=== PATIENT | male | born 1950 | race Caucasian/White ===

== ENCOUNTER 2018-04-30 13:22 | Inpatient (IN) ==
[2018-04-30] MEDS ORDERED: SODIUM CHLORIDE 0.9% 1,000 ML IV STA (13:49)
[2018-04-30] MEDS ORDERED: SODIUM CHLORIDE 0.9% 2,200 ML IV ONE (13:50)
[2018-04-30 13:58] LABS: Basophils % 0.3 % (0.0-0.8); Eosinophils % 0.1 % (0.00-10.9); Hematocrit 25.1 VOL% (42.0-52.0); Hemoglobin 7.9 GM/DL (14.0-18.0); Immature Granulocytes % 0.4 %; Immature Granulocytes Absolute 0.05 #; Lymphocytes # 1.6 10*3/uL (1.4-4.0); Lymphocytes % 13.9 % (21.2-54.2); Mean Corpuscular HGB Conc 31.5 GM/DL (32-36); Mean Corpuscular Hemoglobin 29 PG (27-34); Mean Corpuscular Volume 90.9 FL (87-102); Monocytes # 1.2 10*3/uL (0.11-0.8); Neutrophils # 8.3 10*3/uL (1.4-7.4); Neutrophils % 74.3 % (38.7-73.9); Platelet Count 395 T/CUMM (130-400); Red Blood Count 2.76 MC/CUMM (3.8-5.5); White Blood Count 11.1 T/CUMM (4-12)
[2018-04-30 14:09] LABS: Alanine Aminotransferase 24 U/L (16-61); Albumin 2.1 G/DL (3.4-5.0); Alkaline Phosphatase 95 U/L (45-117); Aspartate Amino Transferase 21 U/L (0-37); Blood Urea Nitrogen 31 MG/DL (7-18); Glucose 66 MG/DL (74-106); Osmolality,Calculated 296.4 MOS/KG (273-304); Potassium 4.6 MMOL/L (3.5-5.1); Sodium 147 MMOL/L (136-145); Total Protein 6.9 G/DL (6.4-8.3)
[2018-04-30 14:09] LABS: INR 1.1; PT Patient Result 11.2 SECS; Partial Thromboplastin Time 31.5 SECS (0-40)
[2018-04-30] MEDS ORDERED: DEXTROSE 50% 25 GM/50 ML VIAL IV STA (14:14)
[2018-04-30] MEDS ORDERED: DEXTROSE 50% 25 GM/50 ML SYRINGE IV ONE (14:16)
[2018-04-30 14:22] LABS: Ammonia < 10 UMOL/L (11-32)
[2018-04-30 15:19] LABS: Apearance,Urine CLOUDY (Clear); Bilirubin,Urine Negative (Negative); Blood, Urine Moderate mg/dL (Negative); Glucose,Urine (UA) Negative (Negative); Hyaline Casts,Urine 2 /LPF (0-3); Ketones,Urine 5 mg/dL (Negative); Nitrite,Urine Negative (Negative); Protein,Urine 30 MG/DL; RBC,Urine 29 /HPF (0-4); Squamous Epithelial Cell,Urine Occasional /HPF (0-10); Urine Color Yellow (Yellow); Urine Specific Gravity 1.014 (1.001-1.035); Urine Urobilinogen < 2.0 EU/DL (0.2-1.0); WBC,Urine 358 /HPF (0-6)
[2018-04-30 15:22] LABS: Barbiturates Screen,Urine Negative (Negative); Benzodiazepines Screen,Urine Negative (Negative); Cannabinoid Screen,Urine Negative (Negative); Opiate Screen,Urine Positive (Negative); Phencyclidine Screen,Urine Negative (Negative)
[2018-04-30] MEDS ORDERED: cefTRIAXone 1,000 MG in SODIUM CHLORIDE 0.9% 100 ML IV STA (15:26)
[2018-04-30] MEDS ORDERED: cefTRIAXone 1,000 MG in SYRINGE 1 EACH IV STA (15:43)
[2018-04-30] MEDS ORDERED: cefTRIAXone 1,000 MG in SYRINGE 1 EACH IV SCH (16:00)
[2018-04-30] MEDS ORDERED: ACETAMINOPHEN 325 MG TABLET PO PRN (16:26)
[2018-04-30] MEDS ORDERED: DEXTROSE 50% 25 GM/50 ML VIAL IV PRN (17:56)
[2018-04-30] MEDS ORDERED: GLUCAGON 1 MG VIAL IM PRN (17:56)
[2018-04-30] MEDS ORDERED: ACETAMINOPHEN 650 MG SUPP RECTAL PRN (19:21)
[2018-04-30] MEDS ORDERED: ALBUTEROL/IPRATROPIUM 3 ML NEB RESP TX PRN (19:55)
[2018-04-30] MEDS: MEROPENEM 1,000 MG in SYRINGE 1 EACH IV SCH (20:38)
[2018-04-30] MEDS: GABAPENTIN 600 MG TABLET PO SCH (21:15)
[2018-04-30] MEDS: FLUoxetine 20 MG CAPSULE PO SCH (21:15)
[2018-05-01] MEDS ORDERED: LORazepam 2 MG/1 ML VIAL IV ONE (05:00)
[2018-05-01 06:56] LABS: Hematocrit 25.4 VOL% (42.0-52.0); Mean Corpuscular HGB Conc 31.5 GM/DL (32-36); Mean Corpuscular Hemoglobin 28 PG (27-34); Mean Corpuscular Volume 89.4 FL (87-102); Mean Platelet Volume 9.2 FL (9.6-12.0); Platelet Count 481 T/CUMM (130-400); Red Blood Count 2.84 MC/CUMM (3.8-5.5); Red Cell Distribution Width 16.1 % (9.3-17.3); White Blood Count 11.5 T/CUMM (4-12)
[2018-05-01 06:57] LABS: Basophils % 0.2 % (0.0-0.8); Immature Granulocytes % 0.5 %; Immature Granulocytes Absolute 0.06 #; Lymphocytes # 1.3 10*3/uL (1.4-4.0); Lymphocytes % 11.4 % (21.2-54.2); Monocytes # 1.2 10*3/uL (0.11-0.8); Monocytes % 10.5 % (1.7-12.7); Neutrophils # 8.9 10*3/uL (1.4-7.4); Neutrophils % 77.4 % (38.7-73.9)
[2018-05-01 07:20] LABS: Calcium 8.8 MG/DL (8.5-10.1); Potassium 4.3 MMOL/L (3.5-5.1)
[2018-05-01 07:33] LABS: Risk Ratio 4.15; Thyroid Stimulating Hormone 0.429 uIU/ml (0.358-3.74); VLDL CHOLESTEROL 23.6 MG/DL
[2018-05-01] MEDS ORDERED: MELOXICAM 7.5 MG TABLET PO SCH (09:00)
[2018-05-01] MEDS ORDERED: PANTOPRAZOLE 40 MG TABLET PO SCH (09:00)
[2018-05-01] MEDS ORDERED: buPROPion 100 MG TABLET PO SCH (09:00)
[2018-05-01] MEDS ORDERED: cefTRIAXone 1,000 MG in SYRINGE 1 EACH IV SCH (09:00)
[2018-05-01] MEDS ORDERED: LISINOPRIL 5 MG TABLET PO SCH (09:00)
[2018-05-01] MEDS: MEROPENEM 1,000 MG in SYRINGE 1 EACH IV SCH (09:55)
[2018-05-01] MEDS: FLUoxetine 20 MG CAPSULE PO SCH (09:56)
[2018-05-01] MEDS: GABAPENTIN 600 MG TABLET PO SCH (09:56)
[2018-05-01] MEDS ORDERED: METOPROLOL SUCCINATE XL 25 MG TABLET PO ONE ×3 (10:17→17:04)
[2018-05-01] MEDS ORDERED: METOPROLOL TARTRATE 5 MG/5 ML VIAL IV ONE (10:27)
[2018-05-01] MEDS ORDERED: hydrALAZINE 20 MG/1 ML VIAL IV PRN (15:11)
[2018-05-01] MEDS ORDERED: DEXTROSE 5% NACL 0.45% 1,000 ML IV SCH (15:30)
[2018-05-01] MEDS ORDERED: THIAMINE 200 MG/2 ML VIAL IV SCH (15:30)
[2018-05-01] MEDS ORDERED: NIFEdipine 10 MG CAPSULE PO SCH (15:30)
[2018-05-01] MEDS ORDERED: FOLIC ACID INJ 1 MG in SYRINGE 1 EACH IV SCH (15:30)
[2018-05-01] MEDS ORDERED: VANCOMYCIN INJ 1,000 MG in SODIUM CHLORIDE 0.9% 250 ML IV SCH (17:00)
[2018-05-01 17:08] VITALS: BP 152/93
[2018-05-01 17:44] LABS: Glucose,CSF 60 MG/DL (40-70)
[2018-05-01 18:12] LABS: Eosinophils,CSF 1 %; Red Blood Cell,CSF 3053 C/CUMM; White Blood Cell,CSF 5 C/CUMM
[2018-05-01 18:13] LABS: Appearance,CSF Hazy; Lymphocytes,CSF 33 %; Monocytes,CSF 12 %; Neutrophils,CSF 41 %
[2018-05-01] MEDS ORDERED: TAMSULOSIN 0.4 MG CAPSULE PO SCH (21:00)
[2018-05-02] MEDS ORDERED: METOPROLOL SUCCINATE XL 25 MG TABLET PO SCH (09:00)
[2018-05-04 14:18] LABS: CMV PCR Source CSF; Specimen Source CSF
[2018-05-04 14:21] LABS: Epstein-Barr Virus Result Negative (Negative); Epstein-Barr Virus Source CSF
[2018-05-04 14:55] LABS: VDRL Spinal Fluid Negative (Negative)
[2018-05-07 21:35] LABS: West Nile Virus Ab, IgG, CSF Negative (Negative); West Nile Virus Ab, IgM, CSF Negative (Negative)
[2018-05-08 23:21] LABS: Enterovirus PCR Source CSF
[2018-05-09 14:32] LABS: Adenovirus PCR Negative (Negative); Specimen Source CSF
[2018-05-09 15:06] LABS: M. Tuberculosis PCR Result Negative (Negative); M. Tuberculosis PCR Source CSF
== END 2018-05-01 19:52 | disposition hospice, home (50) | DRG 871 ==
LOC: EDUNIT# → EDBD → N.ED 13:22 → N.EDINP 15:53 → N.5E 18:25
PROVIDERS: ADMIT Internal Medicine; ATTEND Internal Medicine